=== PATIENT | female | born 1930 | race Caucasian/White ===

== ENCOUNTER 2016-08-16 09:35 | Emergency (ER) | payer OTHER ==
[~2016-08-16] VITALS: Ht 165.1 cm; Wt 73.0 kg
[~2016-08-16 09:35] MED LIST: ACIDOPHILUS1 EAC3 PO; ALDACTONE25 MG PO; ALLOPURINOL 10100 M1 PO; AMLODIPINE BESY10 MG PO; APAP650 PO; ASA5UEC PO; ATORVASTATIN CA40 MG PO; ATORVASTATIN CA80 MG PO; AVELOX 400 MG400 M1 PO; B COMPLETE1 EAC1 PO; B-100 COMPLEX1 EAC1 PO; BONINE25 MG PO; BYSTOLIC10 MG PO; BYSTOLIC20 MG PO; CALCIUM 600+D1 EAC4 PO; CARDURA2 MG PO; CARDURA4 MG PO; CARVEDILOL6.25 MG PO; CETIRIZINE HCL5 MG PO; CHLORASEPTIC177 ML PO; CIPRO250 M1 PO; CLARITIN10 MG PO; CLONIDINE; COLACE100 MG PO; CRESTOR20 MG PO; DELTA D3400 UNIT PO; DEMADEX20 MG PO; FENOFIBRATE134 MG PO; FISH OIL 1,0001 EAC5 PO; FISH OIL 1,0001 EAC9 PO; FISH OIL 1,001000 M2 PO; FLAX OIL1000 MG PO; FOLIC ACID0.4 MG PO; FUROSEMIDE 40 M40 M1 PO; HYDROCODON-ACE1 EACH PO; K-DUR 20 MEQ T20 MEQ PO; K-DUR10 MEQ PO; KLOR-CON 1010 MEQ PO; LASIX 40 MG TAB40 M1 PO; LASIX 80 MG TAB80 MG PO; LEVAQUIN 250 M250 MG PO; MAG-OX 400 TAB400 M1 PO; MAGNESIUM100 MG PO; MAGOX 400400 MG PO; METOLAZONE 5 MG5 M1 PO; MINOXIDIL2.5 MG PO; MUCINEX600 MG PO; MULTI VITAMIN1 EACH PO; NORVASC 5 MG TAB5 MG PO; NORVASC10 MG PO; NYSTATIN 1100000 U/M SW&SWALLOW; OCEAN45 ML NASAL; ONDANSETRON HCL4 M2 PO; OXAZEPAM 10MG C10 M1 PO; PACERONE 200 M200 M1 PO; PLAVIX 75 MG TA75 M1 PO; PLAVIX 75 MG TA75 MG PO; POTASSIUM20 PO; PREMARIN0.625 MG PO; PRILOSEC 20 MG20 MG PO; PROTONIX40 M2 PO; SYNTHROID112 MCG PO; TART CHERRY; TEKTURNA300 MG PO; TORSEMIDE 20 MG PO; TRAMADOL 50 MG50 MG PO; TRICOR145 MG PO; VITAMIN D400 UNI1 PO; ZYRTEC10 M2 PO
[2016-08-16] MEDS ORDERED: PROTONIX40 M1 PO (10:22)
[2016-08-16] MEDS ORDERED: METALAZONE PO (10:25)
== END 2016-08-16 12:35 | disposition home or self-care (01) ==
LOC: ER 09:35
DX: T83.028A Displacement of other urinary catheter, initial encounter (principal); I13.0 Hypertensive heart and chronic kidney disease with heart failure and stage 1 through stage 4 chronic kidney disease, or unspecified chronic kidney disease; N18.9 Chronic kidney disease, unspecified; I50.32 Chronic diastolic (congestive) heart failure; I48.91 Unspecified atrial fibrillation; K21.9 Gastro-esophageal reflux disease without esophagitis; J96.90 Respiratory failure, unspecified, unspecified whether with hypoxia or hypercapnia; Z90.710 Acquired absence of both cervix and uterus; Z95.828 Presence of other vascular implants and grafts; G62.9 Polyneuropathy, unspecified; G47.30 Sleep apnea, unspecified; E78.5 Hyperlipidemia, unspecified; Z91.041 Radiographic dye allergy status; Z91.040 Latex allergy status; Z88.8 Allergy status to other drugs, medicaments and biological substances

== ENCOUNTER → 2016-09-10 | Outpatient (CLI) | payer OTHER ==
[~2016-09-10] MED LIST changes: +METALAZONE PO; +PROTONIX40 M1 PO
== END ==
LOC: RAD 12:20
DX: R06.00 Dyspnea, unspecified (principal)

== ENCOUNTER → 2016-10-08 | Outpatient (CLI) | payer OTHER | LOC: RAD 09:59 | DX: R06.00 Dyspnea, unspecified (principal) ==

== ENCOUNTER 2017-03-15 09:22 | Inpatient (IN) | payer OTHER ==
[~2017-03-15] VITALS: Ht 165.1 cm; Wt 75.1 kg
--- NOTE | ~2017-03-15 | EKG ---
[address] [place] [address] ELECTROCARDIOGRAM REPORT Name: MADDIE GARCIA Room #: 356-P ADM IN M.R.#: [id number] Admission: 03/15/17 Attend Phys: Zunilda Bradshaw MD Discharge: Date of : 34 Report #: [id number] THIS REPORT FOR: //name// [facility] Test Date: 2017-03-17 Test Time: 05:17:10 Pat Name: MADDIE GARCIA Department: Room: [facility] Gender: F Educational Speech Language Clinician: xuan : 1930 Requested By: Chetna Taylor Order Number: [id number] MD: Betito Culver Measurements Intervals [place] Rate: 96 P: 76 WI: 211 QRS: 51 QRSD: 100 T: 67 QT: 373 QTc: 472 Interpretive Statements Sinus rhythm Borderline prolonged WI interval Compared to ECG 03/15/2017 09:41:23 Atrial premature complex(es) no longer present Electronically Signed On 03-17-2017 10:14:53 [employer] by Betito Culver [email or web address] <ELECTRONICALLY SIGNED> By: Betito Culver MD, [facility] 03/17/17 1014 6 6 Betito Culver MD, [facility] /EPI
--- NOTE | ~2017-03-15 | EKG ---
[address] [place] [address] ELECTROCARDIOGRAM REPORT Name: MADDIE GARCIA Room #: 431-P ADM IN M.R.#: [id number] Admission: 03/15/17 Attend Phys: Zunilda Bradshaw MD Discharge: Date of : 34 Report #: [id number] THIS REPORT FOR: //name// [facility] ED Test Date: 2017-03-15 Test Time: 09:41:23 Pat Name: MADDIE GARCIA Department: Room: [facility] Gender: F Rn Office: TAI : 1930 Requested By: Catalino Salguero Order Number: [id number] MD: Betito Culver Measurements Intervals [place] Rate: 97 P: 85 MT: 216 QRS: 45 QRSD: 88 T: 148 QT: 352 QTc: 447 Interpretive Statements Sinus tachycardia Atrial premature complexes Nonspecific repol abnormality, lateral leads Compared to ECG 11/01/2013 08:28:03 Atrial premature complex(es) now present Nonspecific ST and T wave abnormality is now present Electronically Signed On 03-16-2017 14:18:02 CABLE LACER by Betito Culver [email or web address] <ELECTRONICALLY SIGNED> By: Betito Culver MD, [facility] 03/16/17 1418 0941 [id number] Betito Culver MD, [facility] /EPI
[2017-03-15 09:25] VITALS: BP 188/75
[2017-03-15] MEDS ORDERED: SYNTHROID88 MCG PO (10:03)
[2017-03-15 10:04] LABS: HEMATOCRIT 40.7 % (37.0-47.0); HEMOGLOBIN 13.8 gm/dL (12.0-15.0); MCH 32.1 pg (26.0-34.0); MCHC 33.8 g/dL (28.0-37.0); PLATELET COUNT 280 thou/uL (150-400); RBC 4.29 mil/uL (4.20-5.00); RDW 18.8 % (10.5-14.5); WBC 12.6 thou/uL (4.0-11.0)
[2017-03-15 10:12] LABS: CALCIUM 10.5 mg/dL (8.5-10.1); CREATININE 2.8 mg/dL (0.6-1.0)
[2017-03-15 10:13] LABS: POTASSIUM 2.7 mmol/L (3.5-5.1)
[2017-03-15 10:17] LABS: ALBUMIN 3.7 g/dL (3.4-5.0); TOTAL BILIRUBIN 0.6 mg/dL (<0.1-1.0); TOTAL PROTEIN 7.8 g/dL (6.4-8.2)
[2017-03-15 10:23] LABS: URINE BILIRUBIN NEGATIVE (Negative); URINE BLOOD TRACE (Negative); URINE CLARITY CLEAR; URINE COLOR YELLOW; URINE GLUCOSE-RANDOM* NEGATIVE (Negative); URINE KETONES NEGATIVE (Negative); URINE LEUKOCYTES-REFLEX TRACE (Negative); URINE NITRITE-REFLEX NEGATIVE (Negative); URINE PROTEIN (DIPSTICK) TRACE (Negative); URINE UROBILINOGEN 0.2 E.U./dl (0.2-1.0)
[2017-03-15 10:38] LABS: ABSOLUTE NEUTROPHILS 9.7 thou/uL (1.4-8.2); ANISOCYTOSIS 2+
[2017-03-15 12:52] VITALS: BP 181/71
[2017-03-15 13:45] VITALS: BP 190/85
[2017-03-15 20:15] VITALS: BP 150/72
[2017-03-16 05:54] LABS: ABSOLUTE NEUTROPHILS 8.5 thou/uL (1.4-8.2); BASOPHILS 0.5 % (0.0-2.0); EOSINOPHILS 3.7 % (0.0-3.0); HEMATOCRIT 35.4 % (37.0-47.0); LYMPHOCYTES 10.9 % (24.0-44.0); MCH 30.3 pg (26.0-34.0); MCV 94.8 fL (80.0-100.0); MONOCYTES 9.6 % (1.0-8.0); PLATELET COUNT 234 thou/uL (150-400); POLYS 75.3 % (36.0-66.0); RBC 3.73 mil/uL (4.20-5.00); RDW 18.7 % (10.5-14.5); WBC 11.2 thou/uL (4.0-11.0)
[2017-03-16 05:57] LABS: HEMOGLOBIN 11.3 gm/dL (12.0-15.0)
[2017-03-16 06:13] LABS: CALCIUM 9.4 mg/dL (8.5-10.1); CREATININE 2.5 mg/dL (0.6-1.0)
[2017-03-16 06:19] LABS: POTASSIUM 2.4 mmol/L (3.5-5.1)
[2017-03-16 15:37] VITALS: BP 158/59
[2017-03-16 20:00] VITALS: BP 147/41
[2017-03-16] MEDS ORDERED: LASIX 40 MG TAB40 M2 PO ×2 (20:43→20:46)
[2017-03-16 22:44] LABS: MAGNESIUM 1.7 mg/dL (1.8-2.4); POTASSIUM 3.3 mmol/L (3.5-5.1)
[2017-03-17 03:46] VITALS: BP 142/50
[2017-03-17 04:33] LABS: ABSOLUTE NEUTROPHILS 7.8 thou/uL (1.4-8.2); BASOPHILS 1.1 % (0.0-2.0); EOSINOPHILS 6.1 % (0.0-3.0); HEMATOCRIT 34.2 % (37.0-47.0); HEMOGLOBIN 10.9 gm/dL (12.0-15.0); MCH 30.4 pg (26.0-34.0); MCHC 31.9 g/dL (28.0-37.0); MCV 95.3 fL (80.0-100.0); MONOCYTES 8.7 % (1.0-8.0); PLATELET COUNT 241 thou/uL (150-400); POLYS 72.1 % (36.0-66.0); RBC 3.59 mil/uL (4.20-5.00); RDW 18.4 % (10.5-14.5); WBC 10.9 thou/uL (4.0-11.0)
[2017-03-17 04:42] LABS: CALCIUM 8.8 mg/dL (8.5-10.1); CREATININE 2.4 mg/dL (0.6-1.0); MAGNESIUM 1.7 mg/dL (1.8-2.4); POTASSIUM 3.9 mmol/L (3.5-5.1)
[2017-03-17 05:48] LABS: BE(vivo) -2.1 mmol/L (-2 to +3); HCO3 21.8 mmol/L (22.0-26.0); PO2 77.5 mmHg (80.0-100.0); pH 7.413 (7.360-7.450); sO2 95.7 % (92.0-98.0)
[2017-03-17 13:02] VITALS: BP 166/96
[2017-03-17 16:20] VITALS: BP 154/60
[2017-03-17 19:32] VITALS: BP 169/64
[2017-03-18 04:21] VITALS: BP 154/87
[2017-03-18 06:27] LABS: BE(vivo) 1.1 mmol/L (-2 to +3); HCO3 24.8 mmol/L (22.0-26.0); PCO2 36.1 mmHg (35.0-45.0); PO2 65.2 mmHg (80.0-100.0); pH 7.454 (7.360-7.450); sO2 93.9 % (92.0-98.0)
[2017-03-18 06:52] LABS: HEMATOCRIT 34.4 % (37.0-47.0); HEMOGLOBIN 11.2 gm/dL (12.0-15.0); MCH 30.6 pg (26.0-34.0); MCHC 32.6 g/dL (28.0-37.0); MCV 93.8 fL (80.0-100.0); PLATELET COUNT 247 thou/uL (150-400); RBC 3.67 mil/uL (4.20-5.00); RDW 18.3 % (10.5-14.5); WBC 8.4 thou/uL (4.0-11.0)
[2017-03-18 07:03] LABS: CALCIUM 9.5 mg/dL (8.5-10.1); CREATININE 2.4 mg/dL (0.6-1.0)
[2017-03-18 11:02] LABS: ABSOLUTE NEUTROPHILS 7.8 thou/uL (1.4-8.2); HYPOCHROMASIA SLIGHT; MICROCYTES SLIGHT
[2017-03-18 11:03] LABS: ANISOCYTOSIS SLIGHT
[2017-03-18 17:47] VITALS: BP 154/66
[2017-03-18 19:43] VITALS: BP 158/56
[2017-03-19 03:27] VITALS: BP 137/50
[2017-03-19 04:32] LABS: HEMATOCRIT 34.7 % (37.0-47.0); MCH 30.2 pg (26.0-34.0); MCHC 31.8 g/dL (28.0-37.0); RBC 3.65 mil/uL (4.20-5.00); RDW 18.6 % (10.5-14.5); WBC 11.5 thou/uL (4.0-11.0)
[2017-03-19 04:38] LABS: CALCIUM 8.8 mg/dL (8.5-10.1); CREATININE 2.6 mg/dL (0.6-1.0)
[2017-03-19 09:15] VITALS: BP 155/83
[2017-03-19 13:05] VITALS: BP 167/66
[2017-03-19 17:30] VITALS: BP 169/72
[2017-03-19 20:17] VITALS: BP 138/63; BP 158/60
[2017-03-20 04:10] VITALS: BP 157/73
[2017-03-20 05:50] LABS: HEMATOCRIT 34.6 % (37.0-47.0); HEMOGLOBIN 11.5 gm/dL (12.0-15.0); MCH 30.8 pg (26.0-34.0); MCHC 33.2 g/dL (28.0-37.0); MCV 92.7 fL (80.0-100.0); RBC 3.73 mil/uL (4.20-5.00); RDW 18.1 % (10.5-14.5); WBC 9.8 thou/uL (4.0-11.0)
[2017-03-20 05:58] LABS: CALCIUM 8.7 mg/dL (8.5-10.1); CREATININE 2.2 mg/dL (0.6-1.0)
[2017-03-20 06:04] LABS: POTASSIUM 2.4 mmol/L (3.5-5.1)
[2017-03-20 08:16] VITALS: BP 163/70
[2017-03-20 13:22] VITALS: BP 155/72
[2017-03-20 15:09] VITALS: BP 155/72
[2017-03-20 17:17] VITALS: BP 145/83
[2017-03-20 19:26] VITALS: BP 180/74
[2017-03-21] VITALS: BP 155/62
[2017-03-21 04:16] VITALS: BP 151/66
[2017-03-21 08:14] VITALS: BP 159/75
[2017-03-21 12:00] VITALS: BP 175/77
[2017-03-21] MEDS ORDERED: FLAGYL500 MG PO (15:13)
[2017-03-21] MEDS ORDERED: CIPRO500 MG PO (15:13)
[2017-03-21] MEDS ORDERED: PREDNISONE 10 M10 MG PO (15:18)
[2017-03-21] MEDS ORDERED: VENTOLIN HFA 1818 GM INH (15:18)
[2017-03-21 15:35] VITALS: BP 164/82
[2017-03-21 16:43] VITALS: BP 164/82
== END 2017-03-21 18:10 | disposition home health service (06) | DRG 871 ==
LOC: ER 09:22 → EROBS 11:02 → 3W 11:02 → EROBS 12:53 → 4E 13:30 → 3W 03-17 08:26 → ENTRNSPT 03-21 17:21 → 3W 03-21 18:10
PROVIDERS: Hospitalist; Internal Medicine Endocrinology, Diabetes & Metabolism; Nurse Practitioner Acute Care; Physician Assistant
DX: A41.9 Sepsis, unspecified organism (principal); J18.9 Pneumonia, unspecified organism; J96.21 Acute and chronic respiratory failure with hypoxia; K92.2 Gastrointestinal hemorrhage, unspecified; I13.0 Hypertensive heart and chronic kidney disease with heart failure and stage 1 through stage 4 chronic kidney disease, or unspecified chronic kidney disease; K51.00 Ulcerative (chronic) pancolitis without complications; E87.1 Hypo-osmolality and hyponatremia; N17.9 Acute kidney failure, unspecified; K21.9 Gastro-esophageal reflux disease without esophagitis; N18.9 Chronic kidney disease, unspecified; I73.9 Peripheral vascular disease, unspecified; I50.9 Heart failure, unspecified; I48.91 Unspecified atrial fibrillation; E78.5 Hyperlipidemia, unspecified; E87.6 Hypokalemia; I25.10 Atherosclerotic heart disease of native coronary artery without angina pectoris; E86.9 Volume depletion, unspecified; G62.9 Polyneuropathy, unspecified; Z79.899 Other long term (current) drug therapy; Z88.1 Allergy status to other antibiotic agents; Z90.710 Acquired absence of both cervix and uterus; Z98.42 Cataract extraction status, left eye; Z98.41 Cataract extraction status, right eye; Z91.041 Radiographic dye allergy status; Z91.040 Latex allergy status; Z86.73 Personal history of transient ischemic attack (TIA), and cerebral infarction without residual deficits; Z87.11 Personal history of peptic ulcer disease; Z86.74 Personal history of sudden cardiac arrest; Z87.891 Personal history of nicotine dependence; Z99.81 Dependence on supplemental oxygen
CPT/HCPCS: 10183; 10879